=== PATIENT | male | born 1985 | race Caucasian/White ===

== ENCOUNTER → 2017-11-20 | Outpatient (CLI) | payer OTHER ==
--- NOTE | 2017-11-20 16:09 | DIAGNOSTIC IMAGING REPORT ---
R LOWER EXT JOINT WITHOUT CLINICAL HISTORY: 32 years-old Male with RT KNEE PAIN LATERAL MENISCUS. Acute right knee pain, most pronounced laterally. Patient participates in martial arts. COMPARISON: Right knee radiographs 11/14/2017 TECHNIQUE: Multiplanar, multisequence MRI of the right knee was performed without intravenous contrast. FINDINGS: MENISCI: Multidirectional signal involves the posterior horn, posterior junction and body lateral meniscus nicely seen on images 20 through 23 of series 6 and image 6 of series 8 with a large horizontal undersurface component of the tear seen on image 22 series 6 extending to inferior articular surface. The tear likely extends into the posterior horn meniscal root. There is mild blunting of the free lateral meniscus. No definite displaced fragment or parameniscal cyst. No discrete tear of the medial meniscus identified. 3 mm T2 hyperintense structure adjacent to the anterior horn medial meniscus suggests small ganglion, image 12 series 8. CRUCIATE LIGAMENTS: The anterior and posterior cruciate ligaments are normal in signal, morphology and course. Mild nonspecific edema of the intercondylar notch surrounding the ACL. COLLATERAL LIGAMENTS: The popliteus tendon, biceps femoris tendon, fibular collateral ligament and iliotibial band are intact. The superficial and deep components of the medial collateral ligament are intact. EXTENSOR MECHANISM: The quadriceps and patellar tendons are intact. The medial and lateral patellar retinacula are intact. KNEE JOINT: Small knee joint effusion. Areas of low and intermediate grade chondromalacia involve the anterior, mid and posterior weightbearing portions of the lateral femoral condyle. Low-grade chondromalacia involves the medial compartment and patellofemoral joint. Large marginal osteophyte measuring 10 mm involves the posterior aspect of the medial tibial plateau. No definite intra-articular loose body. Subcortical cystic changes of the posterior lateral femoral condyle. Elongated tibial tuberosity to trochlear groove interval measures 2.2 cm. The trochlear groove appears somewhat shallow. Mild lateral tilt of the patella. BONE MARROW: No fracture or marrow replacing process. Mild bone marrow edema of the intercondylar proximal tibia and medial tibial spine. SOFT TISSUES: The periarticular soft tissues are unremarkable. IMPRESSION: 1. Complex tear of the posterior horn, posterior junction and body lateral meniscus with probable tear extension into the posterior meniscal root. 2. Small knee joint effusion with mild tricompartmental degenerative changes. Areas of intermediate grade chondromalacia are seen within the lateral compartment. 3. Elongated tibial tuberosity to trochlear groove interval with mild lateral tilt of the patella within the trochlear groove. Correlate clinically to exclude patellar tracking abnormality. 4. Mild bone marrow edema of the intercondylar proximal tibia and medial tibial spine without fracture identified, possibly reactive. The above report was generated using voice recognition software. It may contain grammatical, syntax or spelling errors. Electronically signed by: Noble River M.D. 11/20/2017 4:07 PM Dictated Date/Time: 11/20/2017 3:55 PM
== END | disposition home or self-care (01) ==
LOC: C.MRIBC 14:34
PROVIDERS: ATTEND Orthopaedic Surgery
DX: S83.271A Complex tear of lateral meniscus, current injury, right knee, initial encounter (principal); X58.XXXA Exposure to other specified factors, initial encounter; M17.11 Unilateral primary osteoarthritis, right knee; M94.261 Chondromalacia, right knee